=== PATIENT | male | born 1985 | race Caucasian/White ===

== ENCOUNTER 2024-01-28 08:50 | Outpatient (REF) | payer MEDICAID, SELFPAY ==
[2024-01-28 12:15] LABS: Alanine Aminotransferase 25 U/L (0-40); Albumin Level 4.4 g/dL (3.5-5.0); Alkaline Phosphatase 94 U/L (39-117); Aspartate Amino Transferase 24 U/L (5-37); Bilirubin Direct 0.2 mg/dL (0.0-0.5); Bilirubin Total 0.5 mg/dL (0.0-1.0); Total Protein 8.7 g/dL (6.5-8.0)
[2024-01-28 12:25] LABS: Syphilis Screen Nonreactive (Nonreactive)
[2024-01-28 12:30] LABS: HBS Num1 > 1000.00 mIU/mL (0-7.99); HBc Num1 0.14 S/CO (0.00-0.79); HBsAGNum1 0.29 S/CO (0.00-0.99); HIV AB/AG Nonreactive (Nonreactive); HIV Num 1 0.17 S/CO (0.00-0.99); Hepatitis B Core Antibody Nonreactive (Nonreactive); Hepatitis B Surface Antigen Negative (Negative); ~HepC Num1 15.08 S/CO (0.00-0.79); ~Hepatitis B Surface Antibody REACTIVE (Nonreactive); ~Hepatitis C Antibody Reactive (Nonreactive)
[2024-01-28 12:32] LABS: Hepatitis A Antibody IgG REACTIVE (Nonreactive); ~Hepatitis A Antibody IgG 10.83 S/CO (0.00-0.99)
[2024-01-28 14:59] LABS: CT PCR NOT DETECTED (Not Detect.); NG PCR NOT DETECTED (Not Detect.)
[2024-01-31 08:32] LABS: TS Negative Control Passed; TS Panel A 0; TS Panel B 1; TS Positive Control Passed; TSpotTB Negative (Negative)
[2024-02-02 15:08] LABS: HCV Log PCR <1.18 NOT DETECTED Log IU/mL (NOT DETECTED); HepC Viral Load <15 NOT DETECTED IU/mL (NOT DETECTED)
== END 2024-01-28 08:51 | disposition home or self-care (01) ==
LOC: HO.HHCL 08:50
PROVIDERS: Visit Provider Family Medicine
DX: Z01.84 Encounter for antibody response examination (principal); Z11.3 Encounter for screening for infections with a predominantly sexual mode of transmission; Z11.1 Encounter for screening for respiratory tuberculosis; F11.90 Opioid use, unspecified, uncomplicated
CPT/HCPCS: 0353U; 36415; 80076; 86481; 86704; 86706; 86708; 86780; 86803; 87340; 87389; 87522

== ENCOUNTER 2024-12-24 15:47 | Emergency (ER) | payer OTHER, SELFPAY ==
[2024-12-24 15:53] VITALS: BP 190/110; PULSE 102; O2SAT 98
[2024-12-24 16:10] VITALS: BP 166/76; PULSE 96; RESP 18; TEMP 37.2; O2SAT 98; BMI 43.8
--- NOTE | 2024-12-24 16:16 | ED_ITS ---
HPI - Overdose General Chief Complaint: Overdose Stated Complaint: possible overdose Time Seen by Provider: 12/24/24 16:07 Source: patient, EMS, RN notes reviewed and old records reviewed Mode of arrival: EMS History of Present Illness ED Provider: Natalie Sosa PA-C [facility] Narrative: 39-year-old male with a past medical history mood disorder, polysubstance use disorder, presenting to the ED via EMS s/p suspected overdose. Patient admits to injecting 3 bags of heroin [employer] & was found by bystander unresponsive who administered Narcan with positive result. Patient denies SI/HI, other illicit substance/ETOH use, injury/trauma, fall, headache, CP/SOB, abdominal pain Related Data Previous Rx's ?Medication ?Instructions ?Recorded amoxicillin 875 mg-potassium 1 tab PO Q12H #4 tabs 12/05/24 clavulanate 125 mg tablet buprenorphine 8 mg-naloxone 2 mg 1 film sublingual TID #9 ea 12/05/24 sublingual film (Suboxone) naloxone 4 mg/actuation nasal spray 4 mg intranasal Q2M PRN opioid 12/05/24 overdose #2 ea Allergies Allergy/AdvReac Type Severity Reaction Status Date / Time No Known Allergies Allergy Verified 12/24/24 16:12 Review of Systems Review of Systems: Yes all other systems are reviewed and are negative Constitutional: Constitutional: Reports as per [facility] Past Medical History Attestation statement: The following information was validated with the patient. Source: old records reviewed Medical History Opiate use Social History Social History Household Members: Unknown / Unable to assess Housing: Unknown / Unable to assess Patient Tobacco Use Status: Tobacco use Unknown Substance Use Type: Crack/Cocaine and Opiates Advance Directives: No Advance Directives Information Provided: No service: No Physical Exam Vital Signs: Vital Signs: Last Vital Signs Temp 98.9 F 12/24/24 17:22 Pulse 96 12/24/24 17:22 Resp 18 12/24/24 17:22 BP 166/76 H 12/24/24 17:22 Pulse Ox 98 12/24/24 17:22 O2 Del Method Room Air 12/24/24 17:22 BMI result Body Mass Index 43.8 Const: General: cooperative, healthy appearing, no acute distress, alert and awake Orientation/consciousness: patient oriented x3 Limitations: no limitations HEENT: Head: Yes normal to inspection and Yes atraumatic Ears: hearing grossly normal bilaterally General nose exam: Normal external nose present Face and sinus: Yes normal facial exam Eyes: General: appearance normal, both eyes and all related structures Pupils: Equal, round and reactive pupils present EOM: EOMs intact bilaterally Neck: Neck: Yes normal visual inspection and Yes no meningeal signs Resp: Effort & Inspection: normal respiratory effort and no respiratory distress Auscultation: clear to auscultation bilaterally and no wheezes Cardio: Rate: regular rate Heart sounds: S1 normal heart sound present and S2 normal heart sound present GI: Inspection: Yes normal to inspection Palpation (GI): Soft to palpation, nontender, no guarding and not rigid Back/Spine/Pelvis: Other: No midline cervical/thoracic/lumbar spinous tenderness/step-off or deformity Skin: Rashes: no rashes Wounds: no wounds Neuro: General: patient oriented x3, tone normal, moves all extremities, no meningeal signs and CN's II-XI intact bilaterally Cranial nerves: Yes CN's II-XII intact bilaterally and Yes Equal, round and reactive pupils present Extrem: General: Yes normal to inspection Psych: Thought content: suicidality and no homicidality Course Course Course Narrative: -1710--patient has remained awake and alert since ED arrival. Ambulating. Acting appropriate. Safe for discharge home at this time. Will be sent home with Narcan to go Medications Administered Discontinued Medications Generic Name Dose Route Start Last Admin Trade Name Narayan PRN Reason Stop Dose Admin Naloxone HCl 8 mg 12/24/24 16:11 12/24/24 17:13 Naloxone Hcl Nasal Take Home 4 Mg [place] NOSTRILALT 12/24/24 16:12 8 mg ONCE ONE Administration Medical Decision Making Medical Decision Making MDM Narrative: 39-year-old male with a past medical history mood disorder, polysubstance use disorder, presenting to the ED via EMS s/p suspected overdose. Patient admits to injecting 3 bags of heroin [employer] & was found by bystander unresponsive who administered Narcan with positive result. On exam vital signs stable, NAD, nontoxic appearing, awake and alert, acting appropriate, no evidence of trauma, no midline tenderness throughout, no focal deficits. Concern for accidental overdose. Denies SI/HI. Plan: MARSHALL, observe and re-evaluate for clinical sobriety, Narcan to go Please refer to course for remaining clinical decision making, interpretation of labs/imaging results, and discussions with consultants and/or family members. Differential Diagnosis Differential Diagnoses: The differential diagnosis associated with the presentation includes As above Admission/Observation Consideration of admission/observation: Escalation of care including admission/observation considered Lab Data MDM Lab Attestation statement: I reviewed the patient's lab results. Independent Historian Clinical information obtained from an independent historian. History obtained from or confirmed by: EMS External Record Review External record reviewed: Inpatient record, Office record, Outpatient record, Prior outpatient labs, Prior outpatient radiology, Primary care record and Outside ED record Tests considered The following testing was considered but not selected: As above Prescription Management I considered prescription management with: Other Chronic Conditions Patient?s care impacted by: Other Social Determinants Patient?s care significantly limited by Social Determinants of Health including: Other Social Determinant of Health Discharge Plan Discharge Clinical Impression: Drug overdose Qualifiers: Encounter type: initial encounter Injury intent: accidental or unintentional Qualified Code(s): T50.901A - Poisoning by unspecified drugs, medicaments and biological substances, accidental (unintentional), initial encounter Patient Disposition: Home, Self-Care Instructions: Adult Overdose (ED) Additional Instructions: Overdose You were seen in our Emergency Department for an overdose today. You received narcan in order to reverse the effects of overdose. Narcan only lasts about 45 min to 1 hour in the system. You may have been given narcan to take home with you today, please keep it near you if you are going to use again, so others can use it if needed.? The number one risk for fatal overdose is using alone? [employer] is a 24/03 hotline where you can be on the phone with someone while you use, and they can call for help if they suspect an overdose: [phone] Things to look out for when you leave include severe vomiting or diarrhea, headaches, muscle cramps, fever, coughing, chest pain, or if you feel so short of breath you cannot walk to the bathroom. Please seek care and return any time for worsening symptoms.? You may have been provided with safer injection?items, please take time to take care of YOU and your health. Use new supplies whenever possible to lessen the chances of infections and other illnesses.? If you need more supplies, please go [facility],? [address] [place], [place] you can call or text to coordinate delivery of safer supplies. If you decide you want to stop or cut down on how much you?re using, please call the numbers on the list provided to you or you can come to our outpatient Addiction Treatment office [facility], [place] (M-F 9am-5p) [address] [place] [address], [address] [place], [place]. [phone] Prescriptions: No Action amoxicillin-pot clavulanate 875-125 mg Tablet 1 tab PO Q12H Qty: 4 0RF buprenorphine-naloxone [Suboxone] 8-2 mg Film 1 film sublingual TID Qty: 9 0RF naloxone 4 mg/actuation spray,non-aerosol 4 mg intranasal Q2M PRN (Reason: opioid overdose) Qty: 2 0RF Rx Instructions: spray 1 dose into ONE nostril; alternate nostrils w each dose until help arrives Referrals: [facility] [Outside] Interventions: ED Discharge Assessment Last Done: 12/24/24 17:22 Discharge Date/Time: 12/24/24 17:22 Print Language: Unable To Collect
--- NOTE | 2024-12-24 16:31 | PC.NURSE ---
2 bags of personal belongings (clothing, jewelry, & cellphone) placed into [facility]. Labeled and secured by security staff member (Harpal Lomax). Patient is calm/cooperative/agreeable. Changeover completed without issue. [facility] gown, socks, & pants. Ambulating with steady gait while in ED. No weapons or drug paraphernalia found.
[2024-12-24] MEDS: Naloxone HCl Nasal TAKE HOME 4 MG SPRAY 8 MG NOSTRILALT (17:13)
[2024-12-24 17:22] VITALS: BP 166/76; PULSE 96; RESP 18; TEMP 37.2; O2SAT 98
== END 2024-12-24 17:22 | disposition home or self-care (01) ==
PROVIDERS: Emergency Provider Emergency Medicine
DX: T40.1X1A Poisoning by heroin, accidental (unintentional), initial encounter (principal); R40.4 Transient alteration of awareness; F11.20 Opioid dependence, uncomplicated; F14.10 Cocaine abuse, uncomplicated; Y92.9 Unspecified place or not applicable
CPT/HCPCS: 99283

== ENCOUNTER 2025-03-23 22:03 | Emergency (ER) | payer MEDICAID, SELFPAY ==
--- NOTE | ~2025-03-23 | CT_ITS ---
CLINICAL HISTORY: AMS --- Additional Notes or Special Instructions: 2300 - pt unable to hold still, RN knows, try again later. jat CT Head WO Contrast COMPARISON: None provided FINDINGS: No acute intracranial hemorrhage. No evidence of acute infarction. No mass-effect or midline shift. No hydrocephalus. Visualized paranasal sinuses are clear. The mastoid air cells are clear. The visible orbits are normal. No acute fracture. Unremarkable soft tissues. IMPRESSION: No acute intracranial findings. This document has been electronically signed by: Ta Morse MD on 03/24/2025 02:15:43
--- NOTE | 2025-03-23 22:11 | ECG_ITS ---
Test Reason : unresponsive, OD Blood Pressure : */* mmHG Vent. Rate : 75 BPM Atrial Rate : 75 BPM P-R Int : 154 ms QRS Dur : 84 ms QT Int : 370 ms P-R-T Axes : 40 64 56 degrees QTcB Int : 413 ms Normal sinus rhythm Minimal voltage criteria for LVH, may be normal variant ( Sokolow-Rousseau ) Borderline ECG No previous ECGs available Referred By: Alanis Garcia Electronically Signed By: Jorgito Mayers
--- NOTE | 2025-03-23 22:15 | ED.OVERDOSE ---
HPI - Overdose General Chief Complaint: Overdose Stated Complaint: OD, narcan given Time Seen by Provider: 03/23/25 22:11 Source: EMS Mode of arrival: EMS Limitations: altered mental status History of Present Illness ED Provider: Dr. Alanis Garcia HPI Narrative: Patient comes to the emergency room via ambulance. According to EMS, patient was found unresponsive in the street. Between bystanders and police department, together they gave 24 mg of intranasal Narcan. On arrival to emergency room, patient is awake, altered, somnolent. Unable to give any history. Related Data Previous Rx's ?Medication ?Instructions ?Recorded amoxicillin 875 mg-potassium 1 tab PO Q12H #4 tabs 12/05/24 clavulanate 125 mg tablet buprenorphine 8 mg-naloxone 2 mg 1 film sublingual TID #9 ea 12/05/24 sublingual film (Suboxone) naloxone 4 mg/actuation nasal spray 4 mg intranasal Q2M PRN opioid 12/05/24 overdose #2 ea Allergies Allergy/AdvReac Type Severity Reaction Status Date / Time cucumber Allergy Mild RASH Verified 03/23/25 22:20 acetaminophen (From TYLENOL) Allergy Unknown RASH Verified 03/23/25 22:20 onion (ONION) Allergy Unknown UNKNOWN Verified 03/23/25 22:20 Review of Systems Review of Systems: Yes Unobtainable due to mental status PMFSH Past Medical History Medical History Opiate use Social History Social History (System 01/12/25 @ 14:27 by Love Li) Household Members: Unknown / Unable to assess Housing: Unknown / Unable to assess Unable to assess alcohol history related to: Unable to respond Patient Tobacco Use Status: Tobacco use Unknown Use of substances other than those prescribed or required for medical reasons: Unable to respond Substance Use Type: Crack/Cocaine and Opiates Advance Directives: No Advance Directives Information Provided: No service: No Physical Exam Exam: Exam: Appearance: somnolent, easily arousable, not talking, drooling, shaking spontaneously arms and legs and making in coherent sounds Eyes: Pupils equal, round and reactive to light. ENT: Pharynx normal. Neck: Normal inspection. Neck supple. No lymph nodes noted. No crepitus CVS: Normal heart rate and rhythm. Pulses normal. Normal S1 and S2 Respiratory: No respiratory distress. Breath sounds normal. No Wheezing. No rales Abdomen: Soft and nontender. No rigidity. No distention. Skin: Skin warm and dry. Normal skin color. Normal skin turgor. Extremities: No lower extremity edema. No Lacerations. No Rash Neuro: Moves all extremities, unable to participating cranial nerve assessment at this time Psych: Intoxicated versus under the influence of drugs Vital Signs: Vital Signs: Last Vital Signs Temp 97.0 F 03/24/25 06:21 Pulse 56 03/24/25 06:21 Resp 14 03/24/25 06:21 BP 126/73 03/24/25 06:21 Pulse Ox 97 03/24/25 06:21 O2 Del Method Room Air 03/24/25 06:21 BMI result Body Mass Index 32.3 Course Course Course Narrative: Patient is altered, he just received 24 mg of intranasal Narcan prior to arriving to the ED. CT scan of the head pending All of patient's labs pending Medical Decision Making Medical Decision Making [facility] Narrative: My interpretation of labs: No significant abnormality in patient's hematology or chemistry, normal LFTs, normal BNP, ETOH negative, urine toxicology pending CT scan of the head does not show any acute abnormality. Patient's vitals are stable, normal blood pressure, no fever, no tachycardia, oxygen saturation 99% on room air, patient seems to be sleeping comfortably At this time, 08:02, patient is awake, alert and oriented x3, sober. Patient states that he feels much better, requesting to eat breakfast before being discharged Differential Diagnosis Differential Diagnoses: The differential diagnosis associated with the presentation includes (Overdose, polysubstance abuse, alcohol intoxication) Admission/Observation Consideration of admission/observation: Escalation of care including admission/observation considered (Patient is under the influence of drugs, in coherent, patient is under physician observation, may need admission) Lab Data [facility] Lab Attestation statement: I reviewed the patient's lab results. 03/23/25 23:36 03/23/25 23:36 Labs: Lab Results 03/23/25 03/23/25 Range/Units 23:36 23:41 WBC 8.4 (4.8-10.8) X10*3/uL RBC 5.66 D (4.60-5.80) X10*6/uL Hgb 14.8 D (14.0-18.0) g/dl Hct 45.4 D (42.0-52.0) % MCV 80.2 (80.0-98.0) fL MCH 26.1 L (27.0-33.0) pg MCHC 32.6 (31.0-36.0) g/dl RDW 13.2 (11.0-16.0) % Plt Count 256 (160-400) X10*3/uL MPV 10.5 (9.4-12.4) fL Immature Gran % (Auto) 0.2 (0.0-0.4) % Neut % (Auto) 80.2 H (45-73) % Lymph % (Auto) 14.6 L (20-40) % Cassia % (Auto) 3.7 (2-11) % Eos % (Auto) 1.1 (0-4) % Baso % (Auto) 0.2 (0-2) % Lymph # (Auto) 1.2 (1.2-4.9) X10*3/uL Cassia # (Auto) 0.3 (0.1-1.2) X10*3/uL Eos # (Auto) 0.1 (0.0-0.4) X10*3/uL Baso # (Auto) 0.0 (0.0-0.2) X10*3/uL Abs Immat Gran (auto) 0.02 (0.00-0.03) X10*3/uL Absolute Neuts (auto) 6.7 (2.0-8.3) x10*3/uL Absolute Nucleated RBC 0.000 (0.0-0.012) X10*3/uL Nucleated RBC % (auto) 0.0 (0.0-0.2) /100WBC VBG pH 7.39 (7.32-7.43) VBG pCO2 48 mmHg VBG pO2 48 mmHg VBG HCO3 30 H (22-26) mmol/L VBG O2 Saturation 76.0 % VBG Base Excess 4.2 mmol/L Sodium 139 (135-145) mmol/L Potassium 3.7 (3.3-5.1) mmol/L Chloride 102 (96-108) mmol/L Carbon Dioxide 26 (22-29) mmol/L Anion Gap 15 (12-20) BUN 9 (9-16) mg/dL Creatinine 0.82 (0.5-1.4) mg/dL Estim Creat Clear Calc 140.4 Estimated GFR > 60 Random Glucose 87 (60-115) mg/dL Calcium 9.7 D (8.4-10.2) mg/dL Magnesium 2.1 (1.6-2.6) mg/dL Total Bilirubin 0.3 (0.0-1.0) mg/dL Direct Bilirubin 0.1 (0.0-0.5) mg/dL AST 24 (5-37) U/L ALT 17 (0-40) U/L Alkaline Phosphatase 91 (39-117) U/L B-Natriuretic Peptide 14 (<100) pg/mL Total Protein 9.5 H (6.5-8.0) g/dL Albumin 4.7 (3.5-5.0) g/dL Ethyl Alcohol < 10 mg/dL Independent Interpretation I performed an independent interpretation of an: CT Scan Radiology Impression Discussion of test interpretation with radiology: I have reviewed the radiologist's reading. Radiologist Impression: No acute intracranial hemorrhage. No evidence of acute infarction. No mass-effect or midline shift. No hydrocephalus. Visualized paranasal sinuses are clear. The mastoid air cells are clear. The visible orbits are normal. No acute fracture. Unremarkable soft tissues. IMPRESSION: No acute intracranial findings. Critical Care Time Critical Care Time Critical Care Time: Yes Total Critical Care Time: 45 Attestation: I have personally provided critical care time. Time includes review of lab data, radiology results, discussion with consultants, and monitoring for potential decompensation. Intervention performed as documented. Discharge Plan Discharge Clinical Impression: Toxic encephalopathy Drug overdose Qualifiers: Encounter type: initial encounter Injury intent: accidental or unintentional Qualified Code(s): T50.901A - Poisoning by unspecified drugs, medicaments and biological substances, accidental (unintentional), initial encounter Patient Disposition: Home, Self-Care Instructions: Adult Overdose (ED) Additional Instructions: Please follow-up with your primary care physician tomorrow. If you have any worsening or new symptoms, please return to the emergency room or call 911 Prescriptions: No Action amoxicillin-pot clavulanate 875-125 mg Tablet 1 tab PO Q12H Qty: 4 0RF buprenorphine-naloxone [Suboxone] 8-2 mg Film 1 film sublingual TID Qty: 9 0RF naloxone 4 mg/actuation spray,non-aerosol 4 mg intranasal Q2M PRN (Reason: opioid overdose) Qty: 2 0RF Rx Instructions: spray 1 dose into ONE nostril; alternate nostrils w each dose until help arrives Print Language: Serbian
[2025-03-23 22:19] VITALS: BP 174/108; PULSE 85; O2SAT 100; BMI 32.3
--- NOTE | 2025-03-23 23:15 | PC.NURSE ---
changed over completely. knife in security. able to not yes/no to simple questions and can keep still briefly when requested by staff. unable to obtain peripheral access or blood draw. charge notified
--- NOTE | 2025-03-23 23:37 | PC.NURSE ---
US line placed to left upper arm. labs obtained and sent
[2025-03-23 23:40] LABS: Venous Blood Gas Refer to POC result
[2025-03-23 23:41] LABS: Hematocrit 45.4 % (42.0-52.0); Hemoglobin 14.8 g/dl (14.0-18.0); Imm Gran Abs Auto 0.02 X10*3/uL (0.00-0.03); Imm Gran Pct Auto 0.2 % (0.0-0.4); Lymphocytes Absolute Auto 1.2 X10*3/uL (1.2-4.9); MANUAL DIFF FLAG NO; Mean Corpuscular HGB Conc 32.6 g/dl (31.0-36.0); Mean Corpuscular Hemoglobin 26.1 pg (27.0-33.0); Mean Corpuscular Volume 80.2 fL (80.0-98.0); NRBC Abs Auto 0.000 X10*3/uL (0.0-0.012); NRBC Pct Auto 0.0 /100WBC (0.0-0.2); Platelet Count 256 X10*3/uL (160-400); Red Blood Count 5.66 X10*6/uL (4.60-5.80); White Blood Count 8.4 X10*3/uL (4.8-10.8)
[2025-03-23 23:45] LABS: VBG HCO3 30 mmol/L (22-26); VBG O2 % Saturation 76.0 %
[2025-03-24] LABS: Alanine Aminotransferase 17 U/L (0-40); Albumin Level 4.7 g/dL (3.5-5.0); Alkaline Phosphatase 91 U/L (39-117); Anion Gap 15 (12-20); Aspartate Amino Transferase 24 U/L (5-37); Blood Urea Nitrogen 9 mg/dL (9-16); Calcium 9.7 mg/dL (8.4-10.2); Carbon Dioxide 26 mmol/L (22-29); Chloride 102 mmol/L (96-108); Creatinine Clr Calc Pharmacy 140.4; Estimated Glomerular Filt Rate > 60; Magnesium 2.1 mg/dL (1.6-2.6); Potassium 3.7 mmol/L (3.3-5.1); Sodium 139 mmol/L (135-145); Total Protein 9.5 g/dL (6.5-8.0)
[2025-03-24 00:05] LABS: B Type Natriuretic Peptide 14 pg/mL (<100)
[2025-03-24 00:34] VITALS: BP 135/74; PULSE 74; RESP 20; O2SAT 96
[2025-03-24 02:41] VITALS: BP 124/81; PULSE 66; RESP 16; TEMP 36.6; O2SAT 99
[2025-03-24 05:19] VITALS: BP 119/73; PULSE 58; RESP 14; TEMP 36.2; O2SAT 98
[2025-03-24 06:21] VITALS: BP 126/73; PULSE 56; RESP 14; TEMP 36.1; O2SAT 97
[2025-03-24 08:09] VITALS: BP 129/77; PULSE 63; RESP 18; TEMP 36.8; O2SAT 100
[2025-03-24 08:19] LABS: Cannabinoid Screen Urine Not Detected (Not Detect)
--- NOTE | 2025-03-24 09:10 | MHC.RECOVRN ---
Attempted to meet with pt following overdose however pt declined to meet with ACS team. Subsequently declined SUDE and all interventions.
[2025-03-24] MEDS: Naloxone HCl Nasal TAKE HOME 4 MG SPRAY 8 MG NOSTRILALT (09:28)
[2025-03-24 09:51] VITALS: BP 129/77; PULSE 63; RESP 18; TEMP 36.8; O2SAT 100
== END 2025-03-24 09:51 | disposition home or self-care (01) ==
PROVIDERS: Emergency Provider Emergency Medicine
DX: T50.991A Poisoning by other drugs, medicaments and biological substances, accidental (unintentional), initial encounter (principal); R40.4 Transient alteration of awareness; G92.9 Unspecified toxic encephalopathy; R94.31 Abnormal electrocardiogram [ECG] [EKG]; R06.02 Shortness of breath; Y92.9 Unspecified place or not applicable; Z51.81 Encounter for therapeutic drug level monitoring; Z79.899 Other long term (current) drug therapy
CPT/HCPCS: 36415; 70450; 80048; 80076; 80307; 82803; 83735; 83880; 85025; 93005; 99285

== ENCOUNTER → 2025-03-23 22:11 | Outpatient (BNV) | payer MEDICAID, SELFPAY | PROVIDERS: Emergency Provider Emergency Medicine; Visit Provider Internal Medicine Cardiovascular Disease | DX: T50.901A Poisoning by unspecified drugs, medicaments and biological substances, accidental (unintentional), initial encounter (principal); R46.4 Slowness and poor responsiveness | CPT/HCPCS: 93010 ==

== ENCOUNTER → 2025-03-24 00:01 | Outpatient (BNV) | payer MEDICAID, SELFPAY | PROVIDERS: Emergency Provider Emergency Medicine; Visit Provider Radiology Diagnostic Radiology | DX: R41.82 Altered mental status, unspecified (principal) | CPT/HCPCS: 70450 ==

== ENCOUNTER 2025-04-17 17:02 | Emergency (ER) | payer MEDICAID, SELFPAY ==
--- NOTE | ~2025-04-17 | XR_ITS ---
CLINICAL HISTORY: sob od 1 view chest x-ray Comparison: None provided Findings: Mildly diffuse interstitial opacities with bronchial wall thickening. No significant pleural effusion or pneumothorax. Prominent cardiac silhouette. No acute fracture. IMPRESSION: Possible small airways disease. This document has been electronically signed by: Diogenes Caldwell MD on 04/17/2025 18:30:26
[2025-04-17 17:18] VITALS: BP 152/99; BP 203/110; PULSE 74; PULSE 80; RESP 16; TEMP 36.4; O2SAT 100; O2SAT 99; BMI 29.8
--- NOTE | 2025-04-17 17:44 | ED.GENADULT ---
HPI - General Adult General Chief complaint: ETOH/Substance Use Stated complaint: OD, narcan given, unconscious Time Seen by Provider: 04/17/25 17:05 Source: patient and EMS Mode of arrival: EMS Limitations: no limitations History of Present Illness ED Provider: GALILEO Ramos HPI narrative: 41-year-old male past medical history of IVDA presenting to the emergency department with acute opiate overdose. He was found sitting on a bench dozing off with by standards. According to bystanders he typically uses 4 bags of heroin however today he decided to use 5 bags of heroin. He is borderline unresponsive upon arrival with respiratory distress. Unable to provide history. According to EMS report he received 4 mg by Narcan given by a by standard followed by 2 mg of intranasal Narcan by EMS. On Related Data Allergies Allergy/AdvReac Type Severity Reaction Status Date / Time Unable to Assess Allergy Verified 04/17/25 17:26 Review of Systems Review of Systems: Yes all other systems are reviewed and are negative PMFSH Past Medical History Attestation statement: The following information was validated with the patient. Source: old records reviewed and nursing notes reviewed Social History Social History Alcohol intake: current Use of substances other than those prescribed or required for medical reasons: Yes Advance Directives: No Advance Directives Information Provided: No Physical Exam ED Exam Exam: Appearance: Alert.? Oriented X3.? No acute distress.? Patient dozing off during my examination however able to answer basic questions Head: Normocephalic, atraumatic, no step-offs or deformities Eyes: Pupils equal, round and reactive to light.? ENT: Pharynx normal.? Neck: Normal inspection.? Neck supple.? CVS: Normal heart rate and rhythm.? Pulses normal.? Respiratory: No respiratory distress.? Breath sounds normal.? Abdomen: Soft and nontender.? Skin: Skin warm and dry.? Normal skin color.? Normal skin turgor.? Extremities: No lower extremity edema.? No calf ttp. 5/5 strength to bilateral upper and lower extremities Back: No midline tenderness, no C-spine tenderness, full range of motion, no CVA tenderness bilaterally Neuro: Oriented X 3.? No motor deficit.? No sensory deficit. CN 2-12 intact Vital Signs: Vital Signs - 24 hr 04/17/25 17:18 04/17/25 18:06 04/17/25 20:40 Temperature 97.6 F Pulse Rate 74 67 68 Respiratory Rate 16 24 H 17 Blood Pressure 152/99 H 131/79 142/63 H Pulse Oximetry 99 99 100 Oxygen Delivery Method Room Air Room Air Room Air 04/17/25 22:59 04/18/25 02:36 Temperature 98.3 F Pulse Rate 61 68 Respiratory Rate 17 16 Blood Pressure 103/58 L 132/89 Pulse Oximetry 100 98 Oxygen Delivery Method Room Air Room Air BMI result Body Mass Index 29.8 Vital signs stable Course Reevaluation(s) Reevaluation #1: Patient's CBC with a microcytic anemia. No baseline to compare with. No reports of bleeding. This is likely patient's baseline. Chemistry with no acute findings needing intervention. Ethanol negative Time: 18:25 Reevaluation #2: Patient much more awake at this time. X-ray reads possible small airway disease no upper respiratory symptoms saturating well on room air after Narcan. I do not suspect an acute process. Patient's transient hypoxia likely secondary to overdose. Breath sounds clear to auscultation. Plan is to monitor patient and discharge him in 2 hours as long as he is stable with no hypoxia. Educated patient on diagnosis and treatment plan, answered all question, patient verbalizes understanding. At this time patient will be discharged home, advised to return with new or worsening symptoms. Educated on worrisome signs and symptoms and when to return. At this time I feel comfortable discharge home. Time: 18:52 Reevaluation #3: Patient is resting I did inform my colleagues on the shift that he can be discharged once he wakes up as long as he is hemodynamically stable. Home Narcan ordered. Medications Administered Discontinued Medications Generic Name Dose Route Start Last Admin Trade Name Freq PRN Reason Stop Dose Admin Naloxone HCl 0.4 mg 04/17/25 17:06 04/17/25 18:00 Naloxone Hcl 0.4 Mg/Ml Vial IVPUSH 04/17/25 17:07 Not Given STAT STA Naloxone HCl 4 mg 04/17/25 17:55 04/17/25 18:00 Naloxone Hcl Nasal 4 Mg [place] NOSTRILALT 04/17/25 17:56 4 mg ONCE ONE Administration Naloxone HCl 8 mg 04/17/25 18:26 04/17/25 23:02 Naloxone Hcl Nasal Take Home 4 Mg [place] NOSTRILALT 04/17/25 18:27 8 mg ONCE ONE Administration Medical Decision Making Medical Decision Making [facility] Narrative: 1735 41-year-old male presents with overdose and respiratory distress status post overdose responding well to Narcan. Physical exam patient dozing off during my examination able to answer questions appropriately. Positive response to Narcan makes opiate overdose most likely. No signs of pneumothorax or trauma to head, neck, chest, abdomen or pelvis. No signs of flash pulmonary edema status post administration of Narcan. Plan basic labs, imaging. Will offer him recovery at a later time Differential Diagnosis Differential Diagnoses: The differential diagnosis associated with the presentation includes (Positive response to Narcan makes opiate overdose most likely. No signs of pneumothorax or trauma to head, neck, chest, abdomen or pelvis. No signs of flash pulmonary edema status post administration of Narcan.) Admission/Observation Consideration of admission/observation: Escalation of care including admission/observation considered Lab Data 04/17/25 17:45 04/17/25 17:45 Labs: Lab Results 04/17/25 04/18/25 Range/Units 17:45 01:03 WBC 8.6 (4.8-10.8) X10*3/uL RBC 4.72 (4.60-5.80) X10*6/uL Hgb 12.4 L (14.0-18.0) g/dl Hct 36.7 L (42.0-52.0) % MCV 77.8 L (80.0-98.0) fL MCH 26.3 L (27.0-33.0) pg MCHC 33.8 (31.0-36.0) g/dl RDW 14.1 (11.0-16.0) % Plt Count 246 (160-400) X10*3/uL MPV 10.5 (9.4-12.4) fL Immature Gran % (Auto) 0.2 (0.0-0.4) % Neut % (Auto) 63.9 (45-73) % Lymph % (Auto) 26.6 (20-40) % [place] % (Auto) 6.6 (2-11) % Eos % (Auto) 2.4 (0-4) % Baso % (Auto) 0.3 (0-2) % Lymph # (Auto) 2.3 (1.2-4.9) X10*3/uL [place] # (Auto) 0.6 (0.1-1.2) X10*3/uL Eos # (Auto) 0.2 (0.0-0.4) X10*3/uL Baso # (Auto) 0.0 (0.0-0.2) X10*3/uL Abs Immat Gran (auto) 0.02 (0.00-0.03) X10*3/uL Absolute Neuts (auto) 5.5 (2.0-8.3) x10*3/uL Absolute Nucleated RBC 0.000 (0.0-0.012) X10*3/uL Nucleated RBC % (auto) 0.0 (0.0-0.2) /100WBC Sodium 137 (135-145) mmol/L Potassium 3.8 (3.3-5.1) mmol/L Chloride 103 (96-108) mmol/L Carbon Dioxide 22 (22-29) mmol/L Anion Gap 16 (12-20) BUN 16 (9-16) mg/dL Creatinine 0.95 (0.5-1.4) mg/dL Estim Creat Clear Calc 105.1 Estimated GFR > 60 Random Glucose 108 (60-115) mg/dL Calcium 9.5 (8.4-10.2) mg/dL Magnesium 2.1 (1.6-2.6) mg/dL Total Bilirubin 0.5 (0.0-1.0) mg/dL AST 25 (5-37) U/L ALT 14 (0-40) U/L Alkaline Phosphatase 84 (39-117) U/L Total Protein 8.2 H (6.5-8.0) g/dL Albumin 4.2 (3.5-5.0) g/dL Urine Opiates Screen POSITIVE H (Not Detect) Ur Buprenorphine Scrn Not Detected (Not Detect) ng/mL Ur Oxycodone Screen Not Detected (Not Detect) ng/mL Urine Methadone Screen Not Detected (Not Detect) ng/mL Urine Fentanyl Screen POSITIVE H (Not Detect) Ur Barbiturates Screen Not Detected (Not Detect) Ur Phencyclidine Scrn Not Detected (Not Detect) Ur Amphetamines Screen Not Detected (Not Detect) U Benzodiazepines Scrn Not Detected (Not Detect) Urine Cocaine Screen POSITIVE H (Not Detect) U Marijuana (THC) Screen Not Detected (Not Detect) Ethyl Alcohol < 10 mg/dL Independent Interpretation I performed an independent interpretation of an: Plain X-Ray Radiology Impression Discussion of test interpretation with radiology: I have reviewed the radiologist's reading. Critical Care Time Critical Care Time Critical Care Time: Yes Total Critical Care Time: 35 Attestation: I attest to this time spent taking care of the patient, obtaining history, physical, reviewing labs, imaging, treatment of patients condition +/- specialist/hospitalist consult +/- procedure Discharge Plan Discharge Clinical Impression: Opiate overdose Patient Disposition: Home, Self-Care Additional Instructions: Thank you for choosing [facility]'s Emergency Department for your care today. At this time there is no evidence of an acute process requiring admission to the hospital or continued ED observation, and it is safe to discharge you home. You were seen in the emergency department today for evaluation of a suspected opiate overdose. Please do not use heroin or other narcotics as they are generally not good for your health and can put you at risk for respiratory arrest, anoxic brain injury, severely decreased quality of life, and potentially an otherwise avoidable . Please make use of all available personal and community-based resources to attempt to become sober from recreational drugs. Please stay well hydrated and get plenty of rest. Please follow up with your primary care physician for re-evaluation, additional management of your symptoms, and continued preventative care. If you do not have a primary care physician, please call the [facility] at [phone] to establish a new primary care physician. While waiting to establish your new primary care physician, you can call our [facility] at [phone] for non-emergency needs. Please return to the emergency department if you develop a severe or sudden change in your symptoms, a fever over 100.4 that does not improve with Tylenol or Ibuprofen, recurrent vomiting, or any other new or worsening symptoms or concerns. Referrals: [facility] [Primary Care Provider, Medical] Clinical Impression: Opiate overdose Print Language: [place]
[2025-04-17 17:48] LABS: MANUAL DIFF FLAG NO
[2025-04-17 17:49] LABS: Hematocrit 36.7 % (42.0-52.0); Hemoglobin 12.4 g/dl (14.0-18.0); Imm Gran Abs Auto 0.02 X10*3/uL (0.00-0.03); Imm Gran Pct Auto 0.2 % (0.0-0.4); Lymphocytes Absolute Auto 2.3 X10*3/uL (1.2-4.9); Mean Corpuscular HGB Conc 33.8 g/dl (31.0-36.0); Mean Corpuscular Hemoglobin 26.3 pg (27.0-33.0); Mean Corpuscular Volume 77.8 fL (80.0-98.0); NRBC Abs Auto 0.000 X10*3/uL (0.0-0.012); NRBC Pct Auto 0.0 /100WBC (0.0-0.2); Platelet Count 246 X10*3/uL (160-400); Red Blood Count 4.72 X10*6/uL (4.60-5.80); White Blood Count 8.6 X10*3/uL (4.8-10.8)
[2025-04-17] MEDS: Naloxone HCl Nasal 4 MG SPRAY NOSTRILALT (18:00)
--- NOTE | 2025-04-17 18:01 | PC.NURSE ---
patient unable to stay still in bed, writhing around on stretcher. multiple attempts at IV access including ultrasound guided. able to obtain lab work, patient continues to move in bed removing catheter from arm during ultrasound attempt. intranasal narcan administered, patient remains 99% on room air, opening eyes spontaneously. belongings searched by security and placed in janelle port
[2025-04-17 18:06] VITALS: BP 131/79; PULSE 67; RESP 24; O2SAT 99
[2025-04-17 18:07] LABS: Alanine Aminotransferase 14 U/L (0-40); Albumin Level 4.2 g/dL (3.5-5.0); Alkaline Phosphatase 84 U/L (39-117); Anion Gap 16 (12-20); Aspartate Amino Transferase 25 U/L (5-37); Blood Urea Nitrogen 16 mg/dL (9-16); Calcium 9.5 mg/dL (8.4-10.2); Carbon Dioxide 22 mmol/L (22-29); Chloride 103 mmol/L (96-108); Creatinine Clr Calc Pharmacy 105.1; Estimated Glomerular Filt Rate > 60; Magnesium 2.1 mg/dL (1.6-2.6); Potassium 3.8 mmol/L (3.3-5.1); Sodium 137 mmol/L (135-145); Total Protein 8.2 g/dL (6.5-8.0)
[2025-04-17 20:40] VITALS: BP 142/63; PULSE 68; RESP 17; O2SAT 100
--- NOTE | 2025-04-17 20:44 | PC.NURSE ---
Patient responds to name, answers questions occasionally. Moving around in sleep the stretcher, both side rails up to ensure safety. Patients chest rise and fall is even and unlabored BP is a little elevated at 142/63. Patients other VS are WNL. Protecting his own airway. CIIWA 1. Plan of care ongoing.
[2025-04-17 22:59] VITALS: BP 103/58; PULSE 61; RESP 17; O2SAT 100
[2025-04-17] MEDS: Naloxone HCl Nasal TAKE HOME 4 MG SPRAY 8 MG NOSTRILALT (23:02)
--- NOTE | 2025-04-18 01:09 | PC.NURSE ---
Patient used urinal appropriately, went into the room to assess patient, 500mL of urine emptied in urinal. Replaced urinal on stretcher for continued use. MARSHALL sent to lab.
[2025-04-18 01:22] LABS: Cannabinoid Screen Urine Not Detected (Not Detect)
[2025-04-18 02:36] VITALS: BP 132/89; PULSE 68; RESP 16; TEMP 36.8; O2SAT 98
--- NOTE | 2025-04-18 02:36 | PC.NURSE ---
pt awake, alert and oriented. requesting food and ready to leave. provider made aware
[2025-04-18 02:59] VITALS: BP 132/89; PULSE 68; RESP 16; TEMP 36.8; O2SAT 98
--- NOTE | 2025-04-18 03:02 | PC.NURSE ---
pt's clothing was wet in the belonging bag. given hospital attire to wear. pt waiting in waiting room until morning to go home
== END 2025-04-18 03:03 | disposition home or self-care (01) ==
PROVIDERS: Physician Assistant; Emergency Provider Emergency Medicine
DX: T40.601A Poisoning by unspecified narcotics, accidental (unintentional), initial encounter (principal); R40.0 Somnolence; Y92.9 Unspecified place or not applicable; R06.02 Shortness of breath; R40.4 Transient alteration of awareness
CPT/HCPCS: 36415; 71045; 80053; 80307; 83735; 85025; 99284

== ENCOUNTER → 2025-04-17 17:06 | Outpatient (BNV) | payer MEDICAID, SELFPAY | PROVIDERS: Emergency Provider Emergency Medicine; Visit Provider Radiology Diagnostic Radiology | DX: R06.02 Shortness of breath (principal) | CPT/HCPCS: 71045 ==